=== PATIENT | female | born 1995 | race Caucasian/White ===

== ENCOUNTER 2017-06-14 19:39 | Emergency (ER) | payer OTHER ==
[2017-06-14 19:53] VITALS: BP 121/63
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
== END 2017-06-15 02:00 | disposition home or self-care (01) ==
LOC: EEVIPCON 19:39
DX: Z04.41 Encounter for examination and observation following alleged adult rape (principal); S00.83XA Contusion of other part of head, initial encounter; S80.11XA Contusion of right lower leg, initial encounter; S40.021A Contusion of right upper arm, initial encounter; S40.022A Contusion of left upper arm, initial encounter; X58.XXXA Exposure to other specified factors, initial encounter; Y92.009 Unspecified place in unspecified non-institutional (private) residence as the place of occurrence of the external cause; Y99.8 Other external cause status; Y93.89 Activity, other specified